=== PATIENT | female | born 1955 | race Hispanic/Latino ===

== ENCOUNTER 2022-02-17 22:53 | Emergency (ER) | payer OTHER ==
[~2022-02-17] VITALS: Ht 165.1 cm; Wt 86.2 kg
[2022-02-17 23:33] LABS: BASOPHILS % (AUTO) 0.5 % (0.0-5.0); EOSINOPHILS % (AUTO) 0.2 % (0.0-8.0); HEMATOCRIT 41.5 % (36-48); LYMPHOCYTES % (AUTO) 16.4 % (21.0-51.0); MEAN CORPUSCULAR HEMOGLOBIN 30.7 pg (27.0-33.0); MEAN CORPUSCULAR HGB CONC 33.7 g/dL (32.0-36.0); MONOCYTES % (AUTO) 8.4 % (3.0-13.0); PLATELET COUNT (AUTO) 214 K/uL (130-400); RED BLOOD CELL COUNT(AUTO) 4.56 MIL/uL (4.00-5.50); RED CELL DISTRIBUTION WIDTH 13.6 % (11.0-15.5); WHITE BLOOD COUNT (AUTO) 11.8 K/uL (4.8-10.8)
[2022-02-18 00:03] LABS: CARBON DIOXIDE 24 mmol/L (21-32); CHLORIDE 105 mmol/L (101-111); CREATININE 0.7 mg/dL (0.5-1.5); GLOMERULAR FILTR. RATE CALC 89 mL/min (>60); GLUCOSE,RANDOM 154 mg/dL (70-105); POTASSIUM 3.5 mmol/L (3.5-5.1); SODIUM SERUM 141 mmol/L (136-145); UREA NITROGEN, BLOOD 13 mg/dL (7-18)
[2022-02-18 00:11] LABS: ALANINE AMINOTRANSFERASE 41 U/L (12-78); ALBUMIN 3.2 g/dL (3.5-5.0); ASPARTATE AMINOTRANSFERASE 23 U/L (10-37); TOTAL PROTEIN, SERUM 6.8 g/dL (6.0-8.3)
[2022-02-18 02:26] VITALS: BP 135/63
[2022-02-18] MEDS ORDERED: ONDANSETRON 4MG INJ IVP ONE (03:00)
[2022-02-18] MEDS ORDERED: MORPHINE 4 MG SYG IVP ONE (03:00)
== END 2022-02-18 03:26 | disposition home or self-care (01) ==
LOC: EDH 22:53
DX: M17.0 Bilateral primary osteoarthritis of knee (principal); Z98.890 Other specified postprocedural states
CPT/HCPCS: 99284; 80053; 85025; 86850; 86900; 86901; 87040 ×2; 83605; 36415 ×2; 96374; 96375; J2405; J2270

== ENCOUNTER → 2023-10-28 | Outpatient (CLI) | payer OTHER | END | disposition home or self-care (01) | LOC: RAH 10:58 | PROVIDERS: ATTEND Family Medicine | DX: Z13.820 Encounter for screening for osteoporosis (principal); M85.89 Other specified disorders of bone density and structure, multiple sites; Z78.0 Asymptomatic menopausal state | CPT/HCPCS: 77080 ==